=== PATIENT | female | born 1995 | race African-American/Black ===

== ENCOUNTER 2023-06-22 17:33 | Emergency (ER) | payer MEDICAID, SELFPAY ==
--- NOTE | 2023-06-22 18:05 | ED_ITS ---
HPI - Skin/Abscess/Foreign Bdy General Chief complaint: Skin/Abscess/Foreign Body Stated complaint: rash all over, causing anxiety Time Seen by Provider: 06/22/23 20:47 Source: patient Mode of arrival: ambulatory Limitations: no limitations History of Present Illness HPI narrative: 28 yold with pmh of eczema presents to the ED for itchy generalied dry rash. patient denies any lip swelling, tongue swelling, chest pain, shortness of breath, or sensation of throat closing. Patient states no dermatologists to manage her eczema. Patient deneis any fever, chills, recent long travel, recent surgery, or new foods/lotion/detergent Related Data Previous Rx's Medication Instructions Recorded clobetasol 0.05 % topical ointment 1 appl topical BID 2 weeks #60 06/22/23 (Temovate) grams prednisone 20 mg tablet 40 mg (2 x 20 mg) PO DAILY 5 days 06/22/23 #10 tabs Allergies Allergy/AdvReac Type Severity Reaction Status Date / Time No Known Allergies Allergy Verified 06/22/23 18:05 Review of Systems Review of Systems: generalized itchy rash Yes all other systems are reviewed and are negative [facility] Social History Social History Smoked in Last 30 Days: No Use of substances other than those prescribed or required for medical reasons: No Advance Directives: No Advance Directives Information Provided: No Patient : No Physical Exam Vital Signs: Vital Signs: Last Vital Signs Temp 99.0 F 06/22/23 21:44 Pulse 80 06/22/23 21:44 Resp 20 06/22/23 21:44 BP 127/78 06/22/23 21:44 Pulse Ox 100 06/22/23 21:44 O2 Del Method Room Air 06/22/23 21:44 BMI result Body Mass Index 35.9 Const: General: cooperative, healthy appearing, comfortable, no acute distress, well developed and alert Orientation/consciousness: oriented to person, oriented to place, oriented to time and patient oriented x3 HEENT: Other: PATIENT DENIES ANY LIP SWELLING, TONGUE SWELLING, OR UVULA SWELLING Head: Yes normal to inspection, Yes No palpable skull fracture present, Yes normocephalic and Yes atraumatic Eyes: Other: Negative for any facial swelling, lip swelling, tongue swelling, drooling, or change in voice. Uvula normal General: appearance normal, both eyes and all related structures Neck: Neck: Yes normal visual inspection, Yes full ROM, Yes no lymphadenopathy, Yes no meningeal signs, Yes trachea midline, Yes supple, No anterior neck swelling and No tender Chest: Chest palpation & inspection: normal inspection of the chest and normal palpation of entire chest wall Resp: Effort & Inspection: normal respiratory effort and able to speak in complete sentences Auscultation: clear to auscultation bilaterally Cardio: Jugular venous distension: no JVD Heart sounds: S1 normal heart sound present and S2 normal heart sound present GI: Inspection: Yes normal to inspection Palpation (GI): not firm, nontender, no guarding and not rigid : General: No CVA tenderness and Yes no CVA tenderness Back/Spine/Pelvis: Back: no CVA tenderness, No CVA tenderness and No back tenderness Skin: Other: Generalized dry eczema rash from neck to legs. Negative for any hives Neuro: General: oriented to person, oriented to place, oriented to time, patient oriented x3, gait normal, tone normal, moves all extremities, Normal light touch and pain sensation, no meningeal signs, no focal motor deficits, CN's II-XI intact bilaterally and normal sensation to monofilament Cranial nerves: Yes CN's II-XII intact bilaterally Extrem: General: Yes normal to inspection, Yes full ROM and Yes capillary refill normal Psych: Appearance: grossly normal, well kempt and not disheveled Course Course Course Narrative: RME: 28 year-old F w/ PMHx eczema presenting to the ED c/o diffuse body rash x 1 week, burning & pruritic w/increased anxiety which patient relates to the rash. Admits to feeling cold and jittery. Denies new exposures, SOB, throat closing sensation rash not appreciated in triage, will need to be fully evaluated Full HPI, ROS and PE to be performed by primary ED provider. Medical Decision Making Medical Decision Making [facility] Narrative: 28-year-old female WITH PMH OF ECZEMA WHO PRESENTS TO THE ED FOR WORSENING GENERALIZED ITCHY DRY RASH. PATIENT IS STABLE. NEGATIVE FOR SIGNS OF ANYPHYLAXIX OR ALLERGIC REACTION. NO CELLULITITS. DISCHARGED WITH STEROID CREAM AND PILLS GIVE INFORMATION FOR DERMATOLOGY. Differential Diagnosis Differential Diagnoses: The differential diagnosis associated with the presentation includes (EZCEMA, ALLERGIC REACTION. UTICARIA) Admission/Observation Consideration of admission/observation: Escalation of care including admission/observation considered Lab Data [facility] Lab Attestation statement: I reviewed the patient's lab results. Labs: Lab Results 06/22/23 Range/Units 22:18 POC Glucose 101 (60-115) mg/dL External Record Review External record reviewed: Other (PRIOR VISIT) Prescription Management I considered prescription management with: Other (STEROIDS) Discharge Plan Discharge Clinical Impression: Eczema Patient Disposition: Home, Self-Care Instructions: Dermatitis (ED), Cold Compress or Soak (ED) Additional Instructions: Return to the ED immediately for any chest pain, shortness of breath, weakness, dizziness, swelling of lips, swelling of tongue, worsening rash, fever, chills, or any other concerning symptoms. Do not put cream on face. [facility]. [address] [place] [address] Prescriptions: New clobetasol [Temovate] 0.05 % ointment 1 appl topical BID 14 Days Qty: 60 0RF Rx Instructions: Do not put on face prednisone 20 mg tablet 40 mg PO DAILY 5 Days Qty: 10 0RF Interventions: ED Discharge Assessment Last Done: 06/22/23 22:59 Discharge Date/Time: 06/22/23 23:00 Print Language: Upper Sorbian
[2023-06-22 18:06] VITALS: BP 152/71; PULSE 86; RESP 16; TEMP 36.8; O2SAT 100; BMI 35.9
[2023-06-22 21:44] VITALS: BP 127/78; PULSE 80; RESP 20; TEMP 37.2; O2SAT 100
[2023-06-22 22:22] LABS: Glucose, Whole Blood 101 mg/dL (60-115)
== END 2023-06-22 23:00 | disposition home or self-care (01) ==
PROVIDERS: Emergency Provider Internal Medicine
DX: L30.9 Dermatitis, unspecified (principal); R21 Rash and other nonspecific skin eruption
CPT/HCPCS: 82947; 99282; 99284